=== PATIENT | female | born 1975 | race Two or more races ===

== ENCOUNTER → 2017-02-22 | Outpatient (CLI) | payer BC ==
--- NOTE | ~2017-02-22 | MY11 ---
[facility] A Service of [facility] RADIOLOGY TEXT RESULTS PATIENT: MARTINA LAMAR LOCATION: [facility] : 73 UNIT #: [id number] AGE: [address]: KATEY HAIR APRN SEX: F ORDER DR: [id number] [facility] [address] [place], [place] [address] [id number] O MR#: [id number] Acc #: [id number] NAME: MARTINA LAMAR : 1975 SEX: F STUDY DATE/TIME: 02/22/2017 16:37 UNIT: [facility] ROOM: STUDY DESCRIPTION: MY Mammogram Screening Dig [place] Ordering Physician: Rosanna Hair M.D. Primary Care Physician: Deni Monzon M.D. MEDICAL IMAGING REPORT This report is preliminary unless electronic signature is present EXAM Bilateral digital screening mammogram with CAD 02/22/2017 HISTORY 41-year-old female with no personal or family history of breast cancer. No current complaints. COMPARISON None. FINDINGS CC and MLO views obtained of each breast utilizing digital technique and reviewed with a FDA-approved CAD device. Scattered fibroglandular densities are present bilaterally. No suspicious nodule, architectural distortion or clustered microcalcification is seen. IMPRESSION BIRADS category 1. Negative screening mammogram. Routine screening mammogram is recommended in 1 year. BIRADS: 1 Negative. Patients over the age of 40 are entered into a reminder system with target due date for the next mammogram. A result letter will also be sent to the patient. Dictated by... Rashmi Taylor M.D. THIS IS AN ELECTRONICALLY VERIFIED REPORT Rashmi Taylor M.D. at 02/23/2017 7:[address] [facility] A Service [facility] RADIOLOGY TEXT RESULTS PATIENT: MARTINA LAMAR LOCATION: [facility] : 73 UNIT #: [id number] AGE: [address]: KATEY HAIR APRN SEX: F ORDER DR: BENEDICT/angelica TD: 02/22/2017 22:27 JOB #: [id number] MEDICAL IMAGING REPORT Page 1 of 1 COPY
== END | disposition home or self-care (01) ==
LOC: CWCC 14:45
DX: Z12.31 Encounter for screening mammogram for malignant neoplasm of breast (principal)
CPT/HCPCS: G0202